=== PATIENT | male | born 1950 | race Caucasian/White ===

== ENCOUNTER → 2021-04-16 | Outpatient (CLI) | payer MEDICARE, BC ==
[~2021-04-16] MED LIST: ABAT250V; ASCO500 PO; ASPI81CH PO; B-COMPLEX PLUS1 EACH PO; Balsalazide Di750 MG PO; CALCA500CH PO; CALMAGZIN PO; CARV3.125 PO; DOCU100 PO; DYAZIDE 75/50 PO; ERGO400 PO; FLUT1DIS5 INH; FOLI1 PO; Ferrous Sulfat325 M2 PO; LISI5 PO; MELO7.5 PO; Multivitamin1 EAC1 PO; PARO10 PO; POTCHL10ER PO; PROBIOTIC1 EAC1 PO; SPIR25 PO; TAMS.4ER PO; TIOT18 INH; TORSE20 PO; Toprol Xl25 MG PO; Trexall10 MG PO; VITAMIN C500 M1 PO; XARELTO20 MG PO
[2021-04-16 14:05] LABS: Stool Occult Bld Immuno 1 Negative (NEGATIVE)
== END | disposition home or self-care (01) ==
LOC: LAB 10:41 → LAB SHORT 10:41
PROVIDERS: Internal Medicine Gastroenterology
DX: K51.90 Ulcerative colitis, unspecified, without complications (principal)
CPT/HCPCS: 82274

== ENCOUNTER 2021-05-13 14:01 | Inpatient (IN) | payer MEDICARE, BC ==
[~2021-05-13] VITALS: Ht 185.4 cm; Wt 69.2 kg
[~2021-05-13 14:01] MED LIST changes: +Acerola C500 MG PO; -VITAMIN C500 M1 PO
[2021-05-13 14:50] LABS: Hematocrit 40.3 % (37.0-53.0); Hemoglobin 13.3 g/dL (13.5-17.5); Mean Corpuscular HGB 33.9 pg (26.0-34.0); Mean Corpuscular Volume 103 fL (80-100); Mean Platelet Volume 11.9 fL (9.1-12.4); Platelet Count 128 K/mm3 (150-400); RDW Coefficient Variation 13.6 % (11.7-14.2); RDW Standard Deviation 51.8 fL (35.1-46.3); Red Blood Cell Count 3.92 M/mm3 (4.30-5.90); White Blood Cell Count 7.29 K/mm3 (4.00-11.30)
[2021-05-13 15:03] LABS: Alanine Aminotransfer (ALT/SGP 31 U/L (12-78); Albumin, Blood 3.3 g/dL (3.4-5.0); Albumin/Globulin Ratio 0.8 (0.8-1.8); Alk Phos 54 U/L (50-136); Anion Gap 4 mmol/L (6-16); Aspartate Aminotrans (AST/SGOT 46 U/L (12-37); Bilirubin, Total 0.5 mg/dL (0.1-1.0); Blood Urea Nitrogen 29 mg/dL (8-24); Bun/Creatinine Ratio 24.2 (12.0-20.0); CO2, Blood 34 mmol/L (21-32); Calcium, Blood 8.4 mg/dL (8.5-10.1); Chloride, Blood 99 mmol/L (98-108); Globulin, Blood 3.9 g/dL (2.2-4.0); Glomerular Filtration Rate >60 (60-); Glucose, Blood 102 mg/dL (70-99); Potassium, Blood 3.8 mmol/L (3.5-5.5); Sodium, Blood 137 mmol/L (136-145); Total Protein, Blood 7.2 g/dL (6.4-8.2); Troponin I <0.015 ng/mL (0.000-0.040)
[2021-05-13] MEDS ORDERED: AMIODARONE HCL100 M3 PO (16:00)
[2021-05-13] MEDS ORDERED: CENTRUM SILVER1 EAC2 PO (16:02)
[2021-05-13] MEDS ORDERED: MELATONIN5 M1 PO (16:02)
[2021-05-13] MEDS ORDERED: MOXIFLOXACIN H400 M1 PO (16:04)
[2021-05-13 20:58] LABS: PCO2 Arterial 68.3 mmHg (35-45); PO2 Arterial 80.1 mmHg (80-100); pH Blood Arterial 7.32 (7.35-7.45)
[2021-05-14 03:56] LABS: BASOPHILS ABSOLUTE AUTO 0.01 K/mm3 (0.00-0.23); BASOPHILS PERCENT AUTO 0 % (0-2); EOSINOPHILS PERCENT AUTO 0 % (0-6); Hematocrit 39.8 % (37.0-53.0); Hemoglobin 12.5 g/dL (13.5-17.5); IMMATURE GRAN ABSOLUTE AUTO 0.02 K/mm3 (0.00-0.10); IMMATURE GRAN PERCENT AUTO 0 % (0-1); LYMPHOCYTES ABSOLUTE AUTO 0.15 K/mm3 (0.84-5.20); LYMPHOCYTES PERCENT AUTO 2 % (21-46); MONOCYTES ABSOLUTE AUTO 0.18 K/mm3 (0.16-1.47); MONOCYTES PERCENT AUTO 3 % (4-13); Mean Corpuscular HGB 33.4 pg (26.0-34.0); Mean Corpuscular HGB Conc 31.4 g/dL (31.5-36.5); Mean Corpuscular Volume 106 fL (80-100); Mean Platelet Volume 12.3 fL (9.1-12.4); NEUTROPHILS PERCENT AUTO 95 % (41-73); Platelet Count 135 K/mm3 (150-400); RDW Coefficient Variation 13.4 % (11.7-14.2); RDW Standard Deviation 53.3 fL (35.1-46.3); Red Blood Cell Count 3.74 M/mm3 (4.30-5.90); White Blood Cell Count 6.56 K/mm3 (4.00-11.30)
[2021-05-14 04:19] LABS: Alanine Aminotransfer (ALT/SGP 30 U/L (12-78); Albumin, Blood 3.1 g/dL (3.4-5.0); Albumin/Globulin Ratio 0.8 (0.8-1.8); Alk Phos 51 U/L (50-136); Anion Gap 5 mmol/L (6-16); Aspartate Aminotrans (AST/SGOT 38 U/L (12-37); Bilirubin, Total 0.4 mg/dL (0.1-1.0); Blood Urea Nitrogen 30 mg/dL (8-24); Bun/Creatinine Ratio 25.4 (12.0-20.0); CO2, Blood 35 mmol/L (21-32); Calcium, Blood 8.6 mg/dL (8.5-10.1); Chloride, Blood 99 mmol/L (98-108); Creatinine, Blood 1.18 mg/dL (0.60-1.20); Globulin, Blood 3.7 g/dL (2.2-4.0); Glomerular Filtration Rate >60 (60-); Glucose, Blood 157 mg/dL (70-99); Potassium, Blood 4.8 mmol/L (3.5-5.5); Sodium, Blood 139 mmol/L (136-145); Total Protein, Blood 6.8 g/dL (6.4-8.2)
--- NOTE | 2021-05-14 07:47 | NUR ---
SHIFT SUMMARY PT AOX4 ON ARRIVAL FROM ER. ARRIVED ON BIPAP, SR 70'S. DENIED CP. BREDEANTING LABORED OFF OF BIPAP. PT PREFERS TO TRIPOD WHEN FEELING DISTRESSED. HAD SEVERAL EPISODES OF PULLING OFF BIPAP AND C/O BEING UNABLE TO BREATHE. THIS RN CALLED DR KOENIG AND OBTAINED ORDERS FOR MAG SULFATE FOR RESPIRATORY DISTRESS, ATIVAN PRN, AND CT PE STUDY. PT COOPERATIVE AND DIRECTABLE WHEN STAFF AT BEDSIDE TO REPOSITION HIM, AID W/USE OF URINAL, AND REPLACING BIPAP. PT TOLERATED SOME ORAL CARE THIS AM, DESATS QUICKLY OFF OF BIPAP INTO 80'S. LR INFUSING PER ORDERS. PT C/O THIS AM OF FREQUENCY W/NO OUTPUT WHEN ASSISTED W/URINAL BY PRIMARY CARE MD THIS AM.
--- NOTE | 2021-05-14 18:30 | NUR ---
SHIFT SUMMARY NO ACUTE EVENTS THIS SHIFT, VSS. PT ALERT AND ORIENTED, CALLS APPROPRIATELY. PT SWITCHED FROM BIPAP OVER TO HIGH FLOW NASAL CANNULA AT START OF SHIFT AT 10 L. ABLE TO TITRATE O2 DOWN TO 8 L VIA HIGH FLOW NASAL CANNULA, O2 SATURATION MAINTAINING >90%. PT IS ALERT AND ORIENTED, INDEPENDENT IN ROOM. DENIES PAIN/DIZZINESS THIS SHIFT. PT STATES HE HAS POOR APPETITE, BUT HAS INTAKE NOTED WITH EVERY MEAL.
--- NOTE | 2021-05-15 06:34 | NUR ---
SHIFT SUMMARY PT IS A&O X4, ON HIGH-MICHAEL NC @ 8 L THIS AM, HE HAS BEEN ON 9L THROUGH THE NIGHT. PT HAS BEEN COOPERATIVE WITH CARE EXCEPT FOR THE USE OF BIPAP. HE STATED IT MADE HIM VERY ANXIOUS & HE PREFERRED OT TO USE IT. PT WAS ENC TO PRONE WHILE WEARING NC, HE WAS COMPLIANT & TOLERANT, SPO2 REMAINS >94% WHILE PRONE. SPO2 WILL DECREASE WITH ACTIVITY. PT ENC TO DB&C. CALL LIGHT IN REACH, NO OTHER ACUTE CHANGES.
--- NOTE | 2021-05-15 09:36 | NUR ---
NO ACUTE EVENTS SINCE START OF SHIFT, PT ALERT AND ORIENTED AND INDEPENDENT IN ROOM. CALLS APPROPRIATELY. REPORT GIVEN TO JOSE F WALDROP ON MEDICAL.
--- NOTE | 2021-05-15 16:25 | NUR ---
SHIFT SUMMARY PCU TRANSFER THIS MORNING. PATIENT DENIES PAIN, NAUSEA, AND SHORTNESS OF BREATH. TITRATED FROM 8L TO 6L HIGH FLOW AND MAINTAINING O2 SATURATIONS ABOVE 92%. PATIENT IS INDEPENDENT IN ROOM. PLEASANT AND COOPERATIVE WITH CARE. EATING AND DRINKING WELL.
--- NOTE | 2021-05-16 03:49 | NUR ---
SHIFT SUMMARY PT HAS RESTED MOST OF THE NIGHT, HE HAS DENIED NEEDS T/O THE SHIFT. INDEPENDENT IN THE ROOM AND MAKES NEEDS KNOWN. RESPIRATORY STATUS UNCHANGED, HE IS ON 6L O2, LUNGS DIM T/O. SOB WITH EXERTION. SATS IN THE 90'S ON 6L. ASSESSMENT UNCHANGED. BED IN LOWEST POSITION, CALL LIGHT WITHIN REACH.
[2021-05-16] MEDS ORDERED: FLUT1DIS5 INH (04:14)
[2021-05-16] MEDS ORDERED: AMOX-CLAV 875-1 EAC5 PO (04:16)
[2021-05-16] MEDS ORDERED: MOXI400 PO (04:17)
--- NOTE | 2021-05-16 18:19 | NUR ---
SHIFT SUMMARY PATIENT DENIES PAIN AND NAUSEA. SHORTNESS OF BREATH WITH EXERTION. HI-FLOW OXUGEN INCREASED FROM 6 TO 15L/NC DURING FIRST HALF OF SHIFT. PATIENT VERY DYSPNEIC AND UNABLE TO MAINTAIN SATURATION ABOVE 75% ON 15L/NC HIFLOW. PATIENT PLACED ON NON-REBREATHER AT 15L IN ADDITION TO HIFLOW 15L/NC. PATIENT ABLE TO RECOVER AND OXYGEN SATURATION RETURNED TO ABOVE 92%. PATIENT PLACED ON BIPAP BUT UNABLE TO TOLERATE MASK MORE THAN 30 MINUTES BEFORE REMOVING. PATIENT PLACED ON AIRVO WHICH PATIENT IS TOLERATING WELL. POOR PO INTAKE, MAGIC CUP AND ENSURE ENCOURAGED. UP INDEPENDENT FROM BED TO CHAIR, URINAL AT BEDSIDE. PLEASANT AND COOPERATIVE WITH CARE.
--- NOTE | 2021-05-17 07:14 | NUR ---
SHIFT SUMMARY ALERT, ABLE TO MAKE NEEDS KNOWN. COOPERATIVE WITH CARE. ANSWERS QUESTIONS APPROPRIATELY. NO C/O PAIN/DISCOMFORT. REMAINED ON AIRVO VIA V60 BIPAP T/O NIGHT. SPO2 SATURATIONS >90% ON 40L. GETS UP TO TRIPODING POSITION PERIODICALLY. APPEARED TO REST SOME OF THE NIGHT. INDEPENDENT WITH URINAL @ BEDSIDE. NO ACUTE CHANGES NOTED OVERNIGHT. BED REMAINS IN LOWEST POSITION. CALL LIGHT AND BELONGINGS WITHIN REACH. CONTINUE WITH CURRENT PLAN OF CARE. REPORT GIVEN TO ONCOMING RN.
--- NOTE | 2021-05-17 17:32 | NUR ---
PT AOX4 AND COOPERATIVE OF CARE. PT CAN CALL APPROPRIATELY AND HAS BEEN PLEASANT. PT IS ON V60 AND HAS BEEN IN MID 90s ON 4L. PT CONTINUES TO FEEL BETTER IN THE TRIPOD POSITION. PT HAS STAYED IN BED SITTING UP AT THE SIDE TODAY. CALL LIGHT IS WITHIN REACH WILL CONTINUE TO MONITOR.
--- NOTE | 2021-05-18 04:05 | NUR ---
SHIFT SUMMARY A/O, ABLE TO MAKE NEEDS KNOWN. COOPERATIVE WITH CARE. CALLS AND ANSWERS QUESTIONS APPROPRIATELY. NO C/O PAIN/DISCOMFORT. APPEARED TO REST MUCH OF THE NIGHT. OXYGENATION AND LUNG SOUNDS APPEAR TO BE IMPROVING. REMAINS ON AIRVO VIA V60 BIPAP. SPO2 >92%. PATIENT STATES STARTING TO FEEL THE IMPROVEMENT. NO OTHER ACUTE CHANGES NOTED OVERNIGHT. BED REMAINS IN LOWEST POSITION. CALL LIGHT AND BELONGINGS WITHIN REACH. CONTINUE WITH CURRENT PLAN OF CARE. REPORT TO ONCOMING RN.
[2021-05-18 13:05] LABS: Hematocrit 44.5 % (37.0-53.0); Hemoglobin 14.1 g/dL (13.5-17.5); Mean Corpuscular HGB 33.3 pg (26.0-34.0); Mean Corpuscular HGB Conc 31.7 g/dL (31.5-36.5); Mean Corpuscular Volume 105 fL (80-100); Mean Platelet Volume 11.6 fL (9.1-12.4); Platelet Count 260 K/mm3 (150-400); RDW Coefficient Variation 13.4 % (11.7-14.2); RDW Standard Deviation 52.6 fL (35.1-46.3); Red Blood Cell Count 4.24 M/mm3 (4.30-5.90); White Blood Cell Count 18.25 K/mm3 (4.00-11.30)
[2021-05-18 13:35] LABS: Anion Gap 1 mmol/L (6-16); Blood Urea Nitrogen 23 mg/dL (8-24); Bun/Creatinine Ratio 29.8 (12.0-20.0); CO2, Blood 39 mmol/L (21-32); Calcium, Blood 9.2 mg/dL (8.5-10.1); Chloride, Blood 102 mmol/L (98-108); Creatinine, Blood 0.77 mg/dL (0.60-1.20); Glomerular Filtration Rate >60 (60-); Glucose, Blood 163 mg/dL (70-99); Potassium, Blood 4.5 mmol/L (3.5-5.5); Sodium, Blood 142 mmol/L (136-145)
--- NOTE | 2021-05-18 17:27 | NUR ---
MET WITH PT TODAY FOR A VISIT. HE IS USING AN 02 OXYMIZER, AND BREATHING APPEARS TO BE IMPROVING FROM YESTERDAY. HE IS STILL WORKING A BIT HARDER THAN NORMAL. HE DENIES PAIN, DENIES SOB, DENIES ANXIETY, BUT APPEARS ANXIOUS WELL. HE IS MAINLY FOCUSED ON HIS BREATHING. HE REQUESTS A CUP OF COFFEE. HE WAS NOT VERY TALKATIVE TODAY EITHER, BUT HE ASKS IF I WOULD BE WILLING TO VISIT AGAIN TOMORROW HE IS "TIRED TODAY". I TELL HIM I WILL.
--- NOTE | 2021-05-18 17:38 | NUR ---
SHIFT SUMMARY PT HAS BEEN INDEPENDENT IN THE ROOM THROUGHOUT THE DAY. PT'S VS STABLE, PT IS ON 3L OXYMIZER AND WAS WEANED OFF THE AIRVO TODAY. PT HAS MAINTAINED SATURATION ABOVE 92% ON THE 3L. PT HAS DENIED PAIN AND DISCOMFORT THROUGHOUT THE DAY. A SPUTUM SAMPLE WAS SENT FOR PT TODAY. PT HAS BEEN DANGLING AT TRIPODING AT THE BEDSIDE THROUHGOUT THE DAY. PT IS RESTING AT THE EDGE OF THE BED WAITING FOR DINNER
--- NOTE | 2021-05-19 04:57 | NUR ---
SHIFT SUMMARY A/O, ABLE TO MAKE NEEDS KNOWN. COOPERATIVE WITH CARE. CALLS AND ANSWERS QUESTIONS APPROPRIATELY. NO C/O PAIN/DISCOMFORT. STATED AROUND 2300 THAT HE WAS FEELING SOB. CONTACTED RT FOR DUONEB; RECIEVED AROUND 0000. IN MEANTIME, INCREASE O2 FROM 3 TO 5 L VIA OXYMIZER WHILE PATIENT WAS TRIPODING. STATED WAS NOT DOING ANY ACTIVITY, ONLY LAYING IN BED. AFTER RECIEVING DUONEB. FELL ASLEEP FOR A WHILE. HAS REMAINED >92% ON O2 T/O SHIFT. BED REMAINED IN LOWEST POSITION. CALL LIGHT AND BELONGINGS WITHIN REACH. CONTINUE WITH CURRENT PLAN OF CARE. REPORT TO ONCOMING RN.
--- NOTE | 2021-05-19 16:59 | NUR ---
SHIFT SUMMARY PATIENT ALERT, ORIENTED, AND COOPERATIVE WITH CARE THIS SHIFT. PATIENT HAS BEEN INDEPENDENT IN THE ROOM THROUGHOUT THIS SHIFT. PATIENT TITRATED DOWN TO 3L O2 FROM 5L AT THE START OF THE SHIFT. O2 SAT CURRENTLY 95. PATIENT ALTERNATING SITTING UP AT THE SIDE OF THE BED AND LYING IN BED. PATIENT CURRENTLY SITTING AT THE SIDE OF THE BED, NO NEEDS AT THIS TIME.
--- NOTE | 2021-05-20 03:53 | NUR ---
SHIFT SUMMARY PT ON 3L O2 T/O THE NIGHT AND MAINTAINS SATS ABOVE 92%. PT STILL VERY SOB WITH EXERTION. PT ANXIOUS AT TIMES. LUNGS DIMINISHED T/O. IV SOLUMEDROL PER ORDERS. NO ACUTE CHANGES TO REPORT THIS SHIFT. PT REMAINS INDEPENDENT IN THE ROOM. BED IN LOWEST POSITION, CALL LIGHT WITHIN REACH.
--- NOTE | 2021-05-20 17:21 | NUR ---
SHIFT SUMMARY PATIENT ALERT AND ORIENTED THROUGHOUT THIS SHIFT. PATIENT HAS BEEN INDEPENDENT IN THE ROOM. PATIENT SITTING ON THE SIDE OF THE BED IN TRIPOD POSITION FOR MOST OF THIS SHIFT. PATIENT STATES IT IS COMMON FOR HIM TO SIT IN THIS POSITION AT HOME. PATIENT REPORTS FEELING SOB, O2 SATS 92-96 THROUGHOUT THIS SHIFT. PATIENT REMAINS ON 3L O2 THIS SHIFT.
--- NOTE | 2021-05-21 04:15 | NUR ---
SHIFT SUMMARY NO ACUTE CHANGES TO REPORT THIS SHIFT. PT HAS RESTED DURING THE SHIFT, O2 NEEDS REMAIN UNCHANGED. PT STILL ON 3L OVERNIGHT. LUNGS ARE DIMINISHED, PT BECOMES SEVERELY SOB WITH EXERTION, AND TAKES SOME TIME FOR HIM TO RECOVER. SATS STAY ABOVE 92% OVERNIGHT SOLUMEDROL CONTINUED ORDERED. PLANS FOR POSSIBLE DC TODAY. BED IN LOWEST POSITION, CALL LIGHT WITHIN REACH.
[2021-05-21 05:23] LABS: BASOPHILS ABSOLUTE AUTO 0.01 K/mm3 (0.00-0.23); BASOPHILS PERCENT AUTO 0 % (0-2); EOSINOPHILS PERCENT AUTO 0 % (0-6); Hemoglobin 13.5 g/dL (13.5-17.5); IMMATURE GRAN ABSOLUTE AUTO 0.09 K/mm3 (0.00-0.10); IMMATURE GRAN PERCENT AUTO 1 % (0-1); LYMPHOCYTES ABSOLUTE AUTO 0.15 K/mm3 (0.84-5.20); LYMPHOCYTES PERCENT AUTO 1 % (21-46); MONOCYTES PERCENT AUTO 4 % (4-13); Mean Corpuscular HGB 33.8 pg (26.0-34.0); Mean Corpuscular HGB Conc 31.4 g/dL (31.5-36.5); Mean Corpuscular Volume 108 fL (80-100); Mean Platelet Volume 11.7 fL (9.1-12.4); NEUTROPHILS ABSOLUTE AUTO 12.68 K/mm3 (1.96-9.15); NEUTROPHILS PERCENT AUTO 94 % (41-73); Platelet Count 186 K/mm3 (150-400); RDW Coefficient Variation 13.5 % (11.7-14.2); RDW Standard Deviation 54.3 fL (35.1-46.3); White Blood Cell Count 13.43 K/mm3 (4.00-11.30)
[2021-05-21 05:43] LABS: Anion Gap -1 mmol/L (6-16); Blood Urea Nitrogen 25 mg/dL (8-24); CO2, Blood 42 mmol/L (21-32); Calcium, Blood 8.6 mg/dL (8.5-10.1); Chloride, Blood 101 mmol/L (98-108); Creatinine, Blood 0.83 mg/dL (0.60-1.20); Glomerular Filtration Rate >60 (60-); Glucose, Blood 135 mg/dL (70-99); Potassium, Blood 4.8 mmol/L (3.5-5.5); Sodium, Blood 142 mmol/L (136-145)
--- NOTE | 2021-05-21 17:45 | NUR ---
PATIENT IS ALERT AND ORIENTED. HE HAS A FLAT AFFECT. HE SITS UP ON THE SIDE OF THE BED TO ASSIST HIS BREATHING. HE IS ON 6L OXYMIZER. HE IS INDEPENDENT TO THE BATHROOM, HE DOES DESAT TO 87% AT TIMES WHILE AMBULATING TO THE BATHROOM. PATIENT SPOKE WITH HIS OVER THE PHONE TODAY. DR. HERNANDEZ PLACED AN ORDER FOR CPAP/BIPAP AT BEDTIME FOR THIS PATIENT. NO C/O PAIN. WILL CONTINUE TO MONITOR
--- NOTE | 2021-05-22 04:05 | NUR ---
SHIFT SUMMARY ADMITTED FOR COVID+/COPD EXACERBATION. DNR CODE. PLAN IS FOR DC HOME W/ WHEN STABLE. HE MAY NEED A TRILOGY. HE DID REFUSE TO WEAR A CPAP HERE. HE IS ON XARELTO. HE DESATS W/ACTIVITY, SO I TEMPORARILY TURNED UP HIS O2. I WAS ABLE TO TITRATE BACK DOWN TO 6 LPM
[2021-05-22 05:10] LABS: PCO2 Arterial 67.7 mmHg (35-45); PO2 Arterial 77.5 mmHg (80-100); pH Blood Arterial 7.42 (7.35-7.45)
[2021-05-22 05:39] LABS: BASOPHILS ABSOLUTE AUTO 0.01 K/mm3 (0.00-0.23); BASOPHILS PERCENT AUTO 0 % (0-2); EOSINOPHILS PERCENT AUTO 0 % (0-6); Hematocrit 42.6 % (37.0-53.0); Hemoglobin 13.5 g/dL (13.5-17.5); IMMATURE GRAN ABSOLUTE AUTO 0.12 K/mm3 (0.00-0.10); IMMATURE GRAN PERCENT AUTO 1 % (0-1); LYMPHOCYTES ABSOLUTE AUTO 0.12 K/mm3 (0.84-5.20); LYMPHOCYTES PERCENT AUTO 1 % (21-46); MONOCYTES PERCENT AUTO 4 % (4-13); Mean Corpuscular HGB 33.3 pg (26.0-34.0); Mean Corpuscular HGB Conc 31.7 g/dL (31.5-36.5); Mean Corpuscular Volume 105 fL (80-100); Mean Platelet Volume 11.7 fL (9.1-12.4); NEUTROPHILS ABSOLUTE AUTO 13.37 K/mm3 (1.96-9.15); NEUTROPHILS PERCENT AUTO 95 % (41-73); Platelet Count 193 K/mm3 (150-400); RDW Coefficient Variation 13.6 % (11.7-14.2); RDW Standard Deviation 53.2 fL (35.1-46.3); Red Blood Cell Count 4.05 M/mm3 (4.30-5.90); White Blood Cell Count 14.12 K/mm3 (4.00-11.30)
[2021-05-22 05:56] LABS: Anion Gap 2 mmol/L (6-16); Blood Urea Nitrogen 24 mg/dL (8-24); Bun/Creatinine Ratio 33.9 (12.0-20.0); CO2, Blood 38 mmol/L (21-32); Chloride, Blood 101 mmol/L (98-108); Creatinine, Blood 0.71 mg/dL (0.60-1.20); Glomerular Filtration Rate >60 (60-); Glucose, Blood 131 mg/dL (70-99); Potassium, Blood 4.5 mmol/L (3.5-5.5); Sodium, Blood 141 mmol/L (136-145)
--- NOTE | 2021-05-22 17:08 | NUR ---
PATIENT IS ALERT AND ORIENTED. HE IS ON 6L OXIMYZER WITH O2 SATURATION AT 93% AT THIS TIME. PATIENT IS INDEPENDENT IN HIS ROOM. PLAN IS FOR DC HOME WITH HOME HEALTH TOMORROW. HIS DROPPED OF CLOTHES FOR HIM THIS EVENING. WILL CONTINUE TO MONITOR
--- NOTE | 2021-05-23 04:50 | NUR ---
SHIFT SUMMARY NO ACUTE CHANGES THIS SHIFT, NO C/O ANY KIND, REMAINS ON 5L 02 VIA OXYMIZER- CURRENT SATS =96%, A&O, INDEP IN ROOM, PLEASANT & COOPERATIVE W/CARE, SLEPT T/O THE NIGHT & SLEEPING AT THIS TIME, CALL LIGHT IN REACH, WILL CONT TO MONITOR UNTIL REPORT GIVEN TO DAY RN.
[2021-05-23] MEDS ORDERED: ALBU2.5V5 INH (14:43)
[2021-05-23] MEDS ORDERED: Diflucan100 MG PO (14:43)
[2021-05-23] MEDS ORDERED: VISBIOME 112.51 EACH PO (14:45)
[2021-05-23] MEDS ORDERED: IPRAT-ALBUT 0.5-3 ML INH (14:45)
[2021-05-23] MEDS ORDERED: PRED20 PO (14:46)
== END 2021-05-23 16:13 | disposition home or self-care (01) | DRG 177 ==
LOC: ER 14:01 → ERHOLD 18:15 → PCU 21:30 → MEDS 05-15 10:19
PROVIDERS: Emergency Medicine; Internal Medicine; ADMIT Internal Medicine
PROC: 8E0ZXY6 Isolation (ICD-10-PCS; principal; 2021-05-13)
PROC: 5A09457 Assistance with Respiratory Ventilation, 24-96 Consecutive Hours, Continuous Positive Airway Pressure (ICD-10-PCS; 2021-05-13)
PROC: XW033E5 Introduction of Remdesivir Anti-infective into Peripheral Vein, Percutaneous Approach, New Technology Group 5 (ICD-10-PCS; 2021-05-13)
PROC: 3E03329 Introduction of Other Anti-infective into Peripheral Vein, Percutaneous Approach (ICD-10-PCS; 2021-05-13)
PROC: 5A0945A Assistance with Respiratory Ventilation, 24-96 Consecutive Hours, High Flow/Velocity Cannula (ICD-10-PCS; 2021-05-18)
DX: U07.1 COVID-19 (principal); J12.82 Pneumonia due to coronavirus disease 2019; J96.01 Acute respiratory failure with hypoxia; J96.02 Acute respiratory failure with hypercapnia; Z66 Do not resuscitate; I48.91 Unspecified atrial fibrillation; I10 Essential (primary) hypertension; Z95.2 Presence of prosthetic heart valve; Z79.01 Long term (current) use of anticoagulants; J43.9 Emphysema, unspecified; Z98.890 Other specified postprocedural states; Z79.899 Other long term (current) drug therapy; Z88.8 Allergy status to other drugs, medicaments and biological substances
CPT/HCPCS: 36415; 36600; 71045; 71260; 80048; 80053; 82803; 83880; 84145; 84484; 85025; 85027; 87070; 87106; 87205; 93005; 93010; 94640; 94644; 94660; 94664; 94760; 94761; 94762; 96374; 96375; 99285-25; A9270; J0456; J0696; J2060; J2920; J2930; J3475; J7040; J7050; J7120; J7512; Q9967

== ENCOUNTER 2024-05-26 05:06 | Emergency (ER) | payer MEDICARE, BC ==
[~2024-05-26] VITALS: Ht 182.9 cm; Wt 71.7 kg
[~2024-05-26 05:06] MED LIST changes: +ALBU2.5V5 INH; +AMIODARONE HCL100 M3 PO; +AMOX-CLAV 875-1 EAC5 PO; +CENTRUM SILVER1 EAC2 PO; +Diflucan100 MG PO; +IPRAT-ALBUT 0.5-3 ML INH; +MELATONIN5 M1 PO; +MOXI400 PO; +MOXIFLOXACIN H400 M1 PO; +PRED20 PO; +VISBIOME 112.51 EACH PO
[2024-05-26] MEDS ORDERED: PACERONE100 M1 PO (05:19)
[2024-05-26] MEDS ORDERED: POTA10T PO (05:23)
[2024-05-26] MEDS ORDERED: TAMS.4ER PO (05:24)
[2024-05-26 05:32] LABS: Source, Urine Foley catheter
[2024-05-26 05:35] LABS: Appearance, Urine Clear (Clear); Bilirubin, Urine Neg (Neg); Blood, Urine 2+ (Neg); Color, Urine Yellow (P-Yellow); Glucose Qualitative, Urine Neg (Neg); Ketones, Urine Neg (Neg); Leukocyte Esterase, Urine 1+ (Neg); Nitrite, Urine Neg (Neg); Protein, Urine 1+ (Neg); Urobilinogen, Urine NORM (Normal)
[2024-05-26 05:54] LABS: Bacteria Many /hpf; Red Blood Cells, Urine 0-2 /hpf (0-2); Renal Epithelial Rare /hpf (0-Rare); Squamous Epithelial Cells Rare /hpf (Few)
[2024-05-26 06:47] VITALS: BP 139/88
[2024-05-26] MEDS ORDERED: CEFDINIR300 M1 PO (07:14)
== END 2024-05-26 07:26 | disposition home or self-care (01) ==
LOC: ER 05:06
PROVIDERS: Emergency Medicine
DX: N39.0 Urinary tract infection, site not specified (principal); J44.9 Chronic obstructive pulmonary disease, unspecified; I10 Essential (primary) hypertension; I48.91 Unspecified atrial fibrillation; Z79.899 Other long term (current) drug therapy; Z79.52 Long term (current) use of systemic steroids; Z79.51 Long term (current) use of inhaled steroids; Z88.8 Allergy status to other drugs, medicaments and biological substances
CPT/HCPCS: 51702; 51798; 81001; 87077; 87086; 87186; 99283-25

== ENCOUNTER → 2024-12-20 | Outpatient (CLI) | payer MEDICARE, BC ==
[~2024-12-20] MED LIST changes: +CEFDINIR300 M1 PO; +PACERONE100 M1 PO; +POTA10T PO
[2024-12-20 17:37] LABS: BASOPHILS ABSOLUTE AUTO 0.03 K/mm3 (0.00-0.23); BASOPHILS PERCENT AUTO 1 % (0-2); EOSINOPHILS ABSOLUTE AUTO 0.06 K/mm3 (0.00-0.68); EOSINOPHILS PERCENT AUTO 1 % (0-6); Hematocrit 41.4 % (37.0-53.0); Hemoglobin 12.9 g/dL (13.5-17.5); IMMATURE GRAN ABSOLUTE AUTO 0.01 K/mm3 (0.00-0.10); IMMATURE GRAN PERCENT AUTO 0 % (0-1); LYMPHOCYTES PERCENT AUTO 4 % (21-46); MONOCYTES ABSOLUTE AUTO 0.29 K/mm3 (0.16-1.47); MONOCYTES PERCENT AUTO 5 % (4-13); Mean Corpuscular HGB 32.3 pg (26.0-34.0); Mean Corpuscular HGB Conc 31.2 g/dL (31.5-36.5); Mean Corpuscular Volume 104 fL (80-100); Mean Platelet Volume 12.7 fL (9.1-12.4); NEUTROPHILS ABSOLUTE AUTO 4.79 K/mm3 (1.96-9.15); NEUTROPHILS PERCENT AUTO 89 % (41-73); Platelet Count 104 K/mm3 (150-400); RDW Standard Deviation 54.4 fL (35.1-46.3); Red Blood Cell Count 3.99 M/mm3 (4.30-5.90); White Blood Cell Count 5.38 K/mm3 (4.00-11.30)
[2024-12-20 17:49] LABS: Alanine Aminotransfer (ALT/SGP 25 U/L (12-78); Albumin, Blood 3.6 g/dL (3.4-5.0); Albumin/Globulin Ratio 1.2 (0.8-1.8); Alk Phos 66 U/L (50-136); Anion Gap 9 mmol/L (3-11); Aspartate Aminotrans (AST/SGOT 18 U/L (12-37); Bilirubin, Total 0.4 mg/dL (0.1-1.0); Blood Urea Nitrogen 18 mg/dL (8-24); Bun/Creatinine Ratio 18.3 (12.0-20.0); CHOL/HDL RATIO 1.9; CO2, Blood 36 mmol/L (21-32); Calcium, Blood 9.3 mg/dL (8.5-10.1); Chloride, Blood 100 mmol/L (98-108); Cholesterol 188 mg/dL (50-200); Creatinine, Blood 0.98 mg/dL (0.60-1.20); Globulin, Blood 2.9 g/dL (2.2-4.0); Glomerular Filtration Rate 82 (60-); Glucose, Blood 143 mg/dL (70-99); HDL Cholesterol 98 mg/dL (>39); LDL/HDL RATIO 0.7; Low Density Lipoprotein Chol 68 mg/dL (0-110); Potassium, Blood 4.4 mmol/L (3.5-5.5); Sodium, Blood 141 mmol/L (136-145); Total Protein, Blood 6.5 g/dL (6.4-8.2); Triglycerides 108 mg/dL (30-160); Very Low Density Lipoprot Chol 21 mg/dL (6-32)
[2024-12-21 13:33] LABS: PSA, %Free 8.4 %; PSA, Free 0.668 ng/mL
== END ==
LOC: LAB 16:29 → LAB SHORT 16:29
PROVIDERS: Family Medicine
DX: N42.9 Disorder of prostate, unspecified (principal); I10 Essential (primary) hypertension; R53.83 Other fatigue; D51.9 Vitamin B12 deficiency anemia, unspecified
CPT/HCPCS: 80053; 80061; 82607; 84153; 84154; 85025

== ENCOUNTER → 2025-01-15 | Outpatient (CLI) | payer MEDICARE, BC ==
[2025-01-15 15:03] LABS: BASOPHILS ABSOLUTE AUTO 0.02 K/mm3 (0.00-0.23); BASOPHILS PERCENT AUTO 0 % (0-2); EOSINOPHILS ABSOLUTE AUTO 0.05 K/mm3 (0.00-0.68); EOSINOPHILS PERCENT AUTO 1 % (0-6); Hematocrit 41.3 % (37.0-53.0); Hemoglobin 13.2 g/dL (13.5-17.5); IMMATURE GRAN ABSOLUTE AUTO 0.03 K/mm3 (0.00-0.10); IMMATURE GRAN PERCENT AUTO 1 % (0-1); LYMPHOCYTES ABSOLUTE AUTO 0.21 K/mm3 (0.84-5.20); LYMPHOCYTES PERCENT AUTO 3 % (21-46); MONOCYTES ABSOLUTE AUTO 0.34 K/mm3 (0.16-1.47); MONOCYTES PERCENT AUTO 5 % (4-13); Mean Corpuscular HGB 32.8 pg (26.0-34.0); Mean Corpuscular Volume 103 fL (80-100); NEUTROPHILS ABSOLUTE AUTO 5.61 K/mm3 (1.96-9.15); NEUTROPHILS PERCENT AUTO 90 % (41-73); RDW Coefficient Variation 13.3 % (11.7-14.2); RDW Standard Deviation 50.6 fL (35.1-46.3); Red Blood Cell Count 4.03 M/mm3 (4.30-5.90); White Blood Cell Count 6.26 K/mm3 (4.00-11.30)
[2025-01-15 15:14] LABS: Albumin, Blood 4.3 g/dL (3.4-5.0); Albumin/Globulin Ratio 1.7 (0.8-1.8); Bilirubin, Total 0.5 mg/dL (0.1-1.0); Bun/Creatinine Ratio 17.7 (12.0-20.0); Calcium, Blood 9.3 mg/dL (8.5-10.1); Creatinine, Blood 0.96 mg/dL (0.60-1.20); Globulin, Blood 2.5 g/dL (2.2-4.0); Potassium, Blood 4.6 mmol/L (3.5-5.5); Total Protein, Blood 6.8 g/dL (6.4-8.2)
[2025-01-15 15:16] LABS: Mean Platelet Volume 11.5 fL (9.1-12.4); Platelet Count 102 K/mm3 (150-400)
== END ==
LOC: LAB SHORT 14:59 → LAB 14:59
PROVIDERS: Emergency Medicine
DX: N39.0 Urinary tract infection, site not specified (principal)
CPT/HCPCS: 80053; 85025; 87086

== ENCOUNTER 2025-04-29 08:58 | Emergency (ER) | payer MEDICARE, BC ==
[~2025-04-29] VITALS: Ht 175.3 cm; Wt 65.8 kg
[2025-04-29] MEDS ORDERED: Dexamethasone Sod Phos 10 MG/ML 1ML VIAL IV ONE (09:15)
[2025-04-29] MEDS ORDERED: Albuterol 2.5 MG/3 ML VIAL INH SCH (09:15)
[2025-04-29 09:38] LABS: BASOPHILS ABSOLUTE AUTO 0.02 K/mm3 (0.00-0.23); BASOPHILS PERCENT AUTO 0 % (0-2); EOSINOPHILS ABSOLUTE AUTO 0.00 K/mm3 (0.00-0.68); EOSINOPHILS PERCENT AUTO 0 % (0-6); Hematocrit 31.4 % (37.0-53.0); Hemoglobin 9.4 g/dL (13.5-17.5); IMMATURE GRAN ABSOLUTE AUTO 0.05 K/mm3 (0.00-0.10); IMMATURE GRAN PERCENT AUTO 1 % (0-1); LYMPHOCYTES ABSOLUTE AUTO 0.21 K/mm3 (0.84-5.20); LYMPHOCYTES PERCENT AUTO 2 % (21-46); MONOCYTES ABSOLUTE AUTO 1.09 K/mm3 (0.16-1.47); MONOCYTES PERCENT AUTO 12 % (4-13); Mean Corpuscular HGB Conc 29.9 g/dL (31.5-36.5); Mean Corpuscular Volume 104 fL (80-100); NEUTROPHILS ABSOLUTE AUTO 8.14 K/mm3 (1.96-9.15); NEUTROPHILS PERCENT AUTO 86 % (41-73); NRBC ABSOLUTE 0.00 K/mm3 (0.00-0.02); NRBC Auto 0.0 /100 WBC (0.0-0.2); Platelet Count 138 K/mm3 (150-400); RDW Coefficient Variation 14.4 % (11.7-14.2); RDW Standard Deviation 54.5 fL (35.1-46.3)
[2025-04-29] MEDS ORDERED: Midazolam HCl 1MG / ML 2ML Vial IV ONE (09:40)
[2025-04-29 09:58] LABS: Alanine Aminotransfer (ALT/SGP 51.0 U/L (12-78); Albumin, Blood 2.4 g/dL (3.4-5.0); Albumin/Globulin Ratio 0.6 (0.8-1.8); Anion Gap 5.0 mmol/L (3-11); Aspartate Aminotrans (AST/SGOT 49.0 U/L (12-37); Bilirubin, Total 0.5 mg/dL (0.1-1.0); Blood Urea Nitrogen 12.0 mg/dL (8-24); CO2, Blood 38.0 mmol/L (21-32); Calcium, Blood 8.9 mg/dL (8.5-10.1); Chloride, Blood 96.0 mmol/L (98-108); Creatinine, Blood 0.72 mg/dL (0.60-1.20); Globulin, Blood 4.3 g/dL (2.2-4.0); Glucose, Blood 140.0 mg/dL (70-99); Potassium, Blood 4.7 mmol/L (3.5-5.5); Sodium, Blood 134.0 mmol/L (136-145); Total Protein, Blood 6.7 g/dL (6.4-8.2)
[2025-04-29 10:10] LABS: pH Blood Venous 7.35 (7.34-7.37)
[2025-04-29 10:22] LABS: Source, Urine Clean Catch
[2025-04-29 10:27] LABS: Bilirubin, Urine Neg (Neg); Color, Urine Yellow (P-Yellow); Glucose Qualitative, Urine Neg (Neg); Ketones, Urine Neg (Neg); Leukocyte Esterase, Urine Neg (Neg); Protein, Urine 2+ (Neg); Specific Gravity, Urine 1.015 (1.003-1.022); Urobilinogen, Urine 1+ (Normal)
[2025-04-29 10:40] LABS: Red Blood Cells, Urine 0-2 /hpf (0-2)
[2025-04-29 11:32] VITALS: BP 102/66
== END 2025-04-29 13:38 | disposition home or self-care (01) ==
LOC: ER 08:58
PROVIDERS: Student in an Organized Health Care Education/Training Program
DX: R06.02 Shortness of breath (principal); I10 Essential (primary) hypertension; I48.91 Unspecified atrial fibrillation; Z79.01 Long term (current) use of anticoagulants; Z90.89 Acquired absence of other organs; J44.9 Chronic obstructive pulmonary disease, unspecified
CPT/HCPCS: 71045; 80053; 81001; 82803; 83880; 84484; 85025; 87077; 87086; 87186; 93005; 93010; 94644; 94660; 94664; 96374; 96375; 99285-25; J1100; J2250

== ENCOUNTER → 2025-05-10 | Outpatient (CLI) | payer MEDICARE, BC ==
[2025-05-10 16:42] LABS: Source, Urine Clean Catch
[2025-05-10 17:30] LABS: Bilirubin, Urine Neg (Neg); Color, Urine Yellow (P-Yellow); Glucose Qualitative, Urine Neg (Neg); Ketones, Urine 1+ (Neg); Leukocyte Esterase, Urine Neg (Neg); Protein, Urine 1+ (Neg); Specific Gravity, Urine 1.010 (1.003-1.022); Urobilinogen, Urine NORM (Normal)
[2025-05-10 17:39] LABS: Red Blood Cells, Urine 0-2 /hpf (0-2); White Blood Cells, Urine 0-2 /hpf (0-5)
== END ==
LOC: LAB SHORT 16:40 → LAB 16:40
PROVIDERS: Family Medicine
DX: N39.0 Urinary tract infection, site not specified (principal)
CPT/HCPCS: 81001

== ENCOUNTER → 2025-05-26 | Outpatient (CLI) | payer MEDICARE, BC | END | disposition home or self-care (01) | LOC: LAB 15:20 → LAB SHORT 15:20 | DX: N39.0 Urinary tract infection, site not specified (principal) | CPT/HCPCS: 87077; 87086; 87186 ==

== ENCOUNTER 2025-06-16 16:36 | Inpatient (IN) | payer MEDICARE, BC ==
[~2025-06-16] VITALS: Ht 182.9 cm; Wt 61.2 kg
[2025-06-16 17:02] LABS: pH Blood Venous 7.28 (7.34-7.37)
[2025-06-16 17:13] LABS: BASOPHILS ABSOLUTE AUTO 0.01 K/mm3 (0.00-0.23); BASOPHILS PERCENT AUTO 0 % (0-2); EOSINOPHILS ABSOLUTE AUTO 0.00 K/mm3 (0.00-0.68); EOSINOPHILS PERCENT AUTO 0 % (0-6); Hematocrit 31.4 % (37.0-53.0); Hemoglobin 8.8 g/dL (13.5-17.5); IMMATURE GRAN ABSOLUTE AUTO 0.02 K/mm3 (0.00-0.10); IMMATURE GRAN PERCENT AUTO 0 % (0-1); LYMPHOCYTES ABSOLUTE AUTO 0.11 K/mm3 (0.84-5.20); LYMPHOCYTES PERCENT AUTO 2 % (21-46); MONOCYTES ABSOLUTE AUTO 0.44 K/mm3 (0.16-1.47); MONOCYTES PERCENT AUTO 6 % (4-13); Mean Corpuscular HGB Conc 28.0 g/dL (31.5-36.5); Mean Corpuscular Volume 103 fL (80-100); NEUTROPHILS ABSOLUTE AUTO 6.52 K/mm3 (1.96-9.15); NEUTROPHILS PERCENT AUTO 92 % (41-73); NRBC ABSOLUTE 0.00 K/mm3 (0.00-0.02); NRBC Auto 0.0 /100 WBC (0.0-0.2); Platelet Count 146 K/mm3 (150-400); RDW Coefficient Variation 16.4 % (11.7-14.2); RDW Standard Deviation 62.4 fL (35.1-46.3)
[2025-06-16 17:49] LABS: Alanine Aminotransfer (ALT/SGP 27 U/L (12-78); Albumin, Blood 2.6 g/dL (3.4-5.0); Albumin/Globulin Ratio 0.6 (0.8-1.8); Aspartate Aminotrans (AST/SGOT 24 U/L (12-37); Bilirubin, Total 0.2 mg/dL (0.1-1.0); Blood Urea Nitrogen 12 mg/dL (8-24); Calcium, Blood 8.9 mg/dL (8.5-10.1); Chloride, Blood 95 mmol/L (98-108); Creatinine, Blood 0.47 mg/dL (0.60-1.20); Globulin, Blood 4.1 g/dL (2.2-4.0); Glucose, Blood 176 mg/dL (70-99); Potassium, Blood 4.4 mmol/L (3.5-5.5); Sodium, Blood 135 mmol/L (136-145); Total Protein, Blood 6.7 g/dL (6.4-8.2)
[2025-06-16 17:50] LABS: Anion Gap Unable to Calculate mmol/L (3-11); CO2, Blood >45 mmol/L (21-32)
[2025-06-16] MEDS ORDERED: Albuterol 2.5 MG/3 ML VIAL INH PRN (20:40)
[2025-06-16] MEDS ORDERED: Ondansetron HCl 2 MG / ML 2ML Vial IV PRN (20:45)
[2025-06-16] MEDS ORDERED: NS 1,000 ML IV SCH (20:45)
[2025-06-16] MEDS ORDERED: Metoclopramide HCl 5MG / ML 2ML Vial IV PRN (20:45)
[2025-06-16 20:50] LABS: pH Blood Venous 7.37 (7.34-7.37)
[2025-06-16] MEDS ORDERED: Ipratropium/Albuterol SulF 2.5-0.5MG/3 ML Amp INH SCH (21:00)
[2025-06-16] MEDS ORDERED: CefTRIAXone Sodium 1,000 MG in NS 100 ML IV SCH (21:03)
--- NOTE | 2025-06-16 21:37 | NUR ---
ARRIVAL TO UNIT PT ARRIVED TO UNIT VIA VARGAS FROM ED. PT SLID TO BED. BIPAP IN USE, RT AT BEDSIDE. O2 SATS >95% ON CURRENT BIPAP SETTINGS, RR 20-28. BASELINE PT WEARS 3-4L O2 VIA NC & CPAP USE @ NOC. A&O x4, PT COMMINUCATION LIMITED R/T BIPAP. PT SPEECH SLOW, ABLE TO ANSWER YES/NO QUESTIONS & 1-2 WORD RESPONSES. NPO. A-FIB, PT DENIES CHEST PAIN/PRESSURE, HR 90s, MAP >65. 1+ EDEMA TO BILAT LEs. SKIN TEAR TO L FA & PRESSURE ULCER TO R POSTERIOR HIP. PICTURES IN CHART. PT DENIES PAIN. INCONT, ATTENDS IN USE. BRIEF CHANGED PRIOR TO ARRIVAL TO UNIT VIA ED RN. BEDREST ORDERED, PT STATES BASELINE IND c FWW. PT ABLE TO PARTICIPATE c TURNING IN BED. ORIENTED TO ROOM, CALL LIGHT IN REACH, BED IN LOWEST POSITION.
[2025-06-16 22:00] VITALS: BP 119/75
[2025-06-16 22:30] VITALS: BP 107/92
[2025-06-16 23:00] VITALS: BP 119/74
[2025-06-17] VITALS (17 sets, daily range): BP systolic 94–136; BP diastolic 50–89
[2025-06-17 03:17] LABS: pH Blood Venous 7.42 (7.34-7.37)
[2025-06-17 03:43] LABS: BASOPHILS ABSOLUTE AUTO 0.00 K/mm3 (0.00-0.23); BASOPHILS PERCENT AUTO 0 % (0-2); EOSINOPHILS ABSOLUTE AUTO 0.00 K/mm3 (0.00-0.68); EOSINOPHILS PERCENT AUTO 0 % (0-6); Hematocrit 28.1 % (37.0-53.0); Hemoglobin 7.9 g/dL (13.5-17.5); IMMATURE GRAN ABSOLUTE AUTO 0.01 K/mm3 (0.00-0.10); IMMATURE GRAN PERCENT AUTO 0 % (0-1); LYMPHOCYTES ABSOLUTE AUTO 0.07 K/mm3 (0.84-5.20); LYMPHOCYTES PERCENT AUTO 2 % (21-46); MONOCYTES ABSOLUTE AUTO 0.06 K/mm3 (0.16-1.47); MONOCYTES PERCENT AUTO 2 % (4-13); Mean Corpuscular HGB Conc 28.1 g/dL (31.5-36.5); Mean Corpuscular Volume 102 fL (80-100); NEUTROPHILS ABSOLUTE AUTO 3.20 K/mm3 (1.96-9.15); NEUTROPHILS PERCENT AUTO 96 % (41-73); NRBC ABSOLUTE 0.00 K/mm3 (0.00-0.02); NRBC Auto 0.0 /100 WBC (0.0-0.2); Platelet Count 136 K/mm3 (150-400); RDW Coefficient Variation 16.1 % (11.7-14.2); RDW Standard Deviation 60.3 fL (35.1-46.3)
[2025-06-17 04:01] LABS: Alanine Aminotransfer (ALT/SGP 21.0 U/L (12-78); Albumin, Blood 2.4 g/dL (3.4-5.0); Albumin/Globulin Ratio 0.7 (0.8-1.8); Anion Gap 3.0 mmol/L (3-11); Aspartate Aminotrans (AST/SGOT 17.0 U/L (12-37); Bilirubin, Total 0.3 mg/dL (0.1-1.0); Blood Urea Nitrogen 11.0 mg/dL (8-24); CO2, Blood 42.0 mmol/L (21-32); Calcium, Blood 8.6 mg/dL (8.5-10.1); Chloride, Blood 97.0 mmol/L (98-108); Creatinine, Blood 0.45 mg/dL (0.60-1.20); Globulin, Blood 3.6 g/dL (2.2-4.0); Glucose, Blood 115.0 mg/dL (70-99); Magnesium, Blood 1.9 mg/dL (1.6-2.4); Potassium, Blood 4.4 mmol/L (3.5-5.5); Sodium, Blood 138.0 mmol/L (136-145); Total Protein, Blood 6.0 g/dL (6.4-8.2)
--- NOTE | 2025-06-17 06:24 | NUR ---
SHIFT SUMMARY S/P COPD EXACERBATION. A&O x4, RESPONDS TO QUESTIONS APPROPRIATELY, LIMITED COMUNICATION R/T BIPAP. O2 SAT >92 ON BIPAP: 16/5 @ 35% FiO2, TOLERATING WELL. PT WEARS 3L O2 VIA NC CONTINUALLY AT BASELINE. PT MAINTAINED O2 SAT >92% ON 4L O2 VIA NC WHILE AWAKE FOR APPROX 2 HOURS. HR 80s c PVCs, MAP >65. IV FLUIDS INFUSING PER EMAR. VOIDING, DARK UNRINE, ATTENDS IN USE, INTERMITTENTLY INCONT. SOFT BM THIS SHIFT. MIN PERIORBITAL SWELLING, BILAT ANKLE EDEMA 1+. BANDAID TO L FA c MIN DRIED SANG DRAINAGE. MEPILEX TO R POSTERIOR HIP C/D/I, PICTURES OF WOUNDS IN CHART. BEDREST ORDERED, BASELINE IND AMB c WALKER. CALL LIGHT IN REACH, BED IN LOWEST POSITION, WILL REPORT TO DAY RN.
[2025-06-17] MEDS ORDERED: Polyethylene Glycol 3350 17 gm PO PRN (07:20)
[2025-06-17] MEDS ORDERED: Cholecalciferol 1000 Unit Tablet (=25MCG) PO SCH (09:00)
[2025-06-17] MEDS ORDERED: Enoxaparin 40 MG/0.4 ML SYR SC SCH (09:00)
[2025-06-17] MEDS ORDERED: Lactobacil 2-S.Thermo-Bifido 1 1 Cap PO SCH (09:00)
[2025-06-17] MEDS ORDERED: PRED5 PO (09:02)
[2025-06-17] MEDS ORDERED: TORS10 PO (09:07)
--- NOTE | 2025-06-17 13:07 | NUR ---
REASSESSMENT PT IS DOING WELL W SPO2 >90% ON 3L NC. PT TOLERATING PO INTAKE DENYING ANY PAIN OR NAUSEA. LS DIMINISHED T/O. PT W ONE INCONTINENT VOID OF BOTH STOOL AND URINE. PT'S MONITOR SHOWING SR 90'S. PT'S TO BRING IN HIS HOME BIPAP TODAY. MED REC COMPLETED W PT AND HIS . PT CURRENTLY RESTING IN BED COMFORTABLY DENYING ANY NEEDS AT THIS TIME.
[2025-06-17] MEDS ORDERED: Morphine Sulfate 4 MG/1 ML Injection IV PRN (17:20)
--- NOTE | 2025-06-17 18:46 | NUR ---
DAY SHIFT SUMMARY PT HAS BEEN ALERT AND ORIENTED THIS SHIFT BUT HAS HAD SEVERAL EPISODES OF CONFUSION REQUIRING REORIENTATION ABOUT THE TIMELINE OF HIS HOSPITALIZATION. PT HAS MAINTAINED SPO2 >90% ON 3-6L NC THIS SHIFT. PT'S SPOUSE BROUGHT IN PT'S HOME BIPAP WHICH DR. MA ADJUSTED FOR THE PT AND THE PT HAS TOLERATED THAT WELL. PT'S BP WNL AND STABLE THIS SHIFT. PT WAS SR 90'S THIS AM BUT HAS BEEN IN AND OUT OF AFIB 90'S-100'S T/O THE DAY. PT AFEBRILE THIS SHIFT. PT TOLERATING PO INTAKE THIS SHIFT. PT INCONTINENT OF BOT STOOL AND URINE THIS SHIFT. WILL REPORT TO ONCOMING RN.
[2025-06-17 19:53] LABS: Influenza A/2009-H1 Not Detected (NOT DETECT); SARS-Cov-2 (COVID-19), BioFire Not Detected (NOT DETECT)
--- NOTE | 2025-06-17 20:55 | NUR ---
PT ARRIVES TO FLOOR VIA BED FROM ICU8. PT ARRIVES ON 3L O2 VIA NC WITH PERSONAL BIPAP AT BEDSIDE. PT ORIENTED TO ROOM AND GIVEN CALL LIGHT.
[2025-06-17] MEDS ORDERED: Docusate Sodium/Senna 1 Tab PO SCH (21:00)
--- NOTE | 2025-06-17 21:08 | NUR ---
PATIENT TRANSFERRED TO ROOM 214. PATIENT MADE AWARE OF POSSIBILITY OF PATIENT TRANFER. PER PATIENT . OK NOT TO NOTIFY OF PATIENT TRANSFER TONIGHT "BECAUSE I NEED TO GET SOME SLEEP, I WILL CHECK WITH FACILITY IN THE MORNING TO FIND OUT WHERE HE HAS MOVED". PATIENT TRANSFERRED VIA BED ON 3L NC. HOME BIPAP TRANSPORTED WITH PATIENT WELL ALL OF PATIENT BELONGINGS IN ROOM. MALE EXTERNAL CATHETER DRAINING TO GRAVITY. SAFTY INTACT.
[2025-06-17] MEDS ORDERED: Ipratropium/Albuterol SulF 2.5-0.5MG/3 ML Amp INH SCH (21:31)
--- NOTE | 2025-06-18 01:53 | NUR ---
CALL FROM SCHOOL BUS DISPATCHER; PT WITH INTERMITTENT ST ELEVATION PER MONITOR. PT REPORTS NO CHEST PAIN OR PRESSURE HOWEVER REPORTS THAT HE FEELS SOME HEART PALPITATIONS. EKG OBTAINED AND AWAITING CALL BACK FROM PROVIDER.
[2025-06-18 01:55] VITALS: BP 103/70
[2025-06-18 04:50] VITALS: BP 114/65
[2025-06-18 04:56] LABS: pH Blood Venous 7.44 (7.34-7.37)
[2025-06-18 05:00] LABS: Hematocrit 30.8 % (37.0-53.0); Hemoglobin 8.7 g/dL (13.5-17.5); Mean Corpuscular HGB Conc 28.2 g/dL (31.5-36.5); Mean Corpuscular Volume 101 fL (80-100); NRBC ABSOLUTE 0.00 K/mm3 (0.00-0.02); NRBC Auto 0.0 /100 WBC (0.0-0.2); Platelet Count 164 K/mm3 (150-400); RDW Coefficient Variation 16.4 % (11.7-14.2); RDW Standard Deviation 60.6 fL (35.1-46.3)
--- NOTE | 2025-06-18 05:34 | NUR ---
PT WITH EPISODE OF INTERMITTENT ST ELEVATION (SEE PREVIOUS NOTE). AT 0535 DRILL PRESS OPERATOR FOR METAL REPORTS NO ST ELEVATION AT THIS TIME. PT WITH HOME BIPAP IN USE DURING SHIFT. PT HAD CONDOM CATHETER MALFUCTION AT APPROXIMATELY 0200 WITH NEED TO CHANGE TO MALE PUREWICK AND BED CHANGE COMPLETED. PT ON 3L O2 VIA NC (PT BASELINE); CONTINUOUS BIOX IN PLACE.
[2025-06-18 05:56] LABS: Ferritin, Serum 429 ng/mL (26-388); Magnesium, Blood 1.8 mg/dL (1.6-2.4); Total Iron Binding Capacity 211 ug/dL (250-450)
[2025-06-18 06:02] LABS: Albumin, Blood 2.7 g/dL (3.4-5.0); Blood Urea Nitrogen 19 mg/dL (8-24); Calcium, Blood 8.7 mg/dL (8.5-10.1); Chloride, Blood 94 mmol/L (98-108); Creatinine, Blood 0.60 mg/dL (0.60-1.20); Glucose, Blood 133 mg/dL (70-99); Phosphorus, Blood 3.2 mg/dL (2.5-4.9); Potassium, Blood 4.0 mmol/L (3.5-5.5); Sodium, Blood 138 mmol/L (136-145)
[2025-06-18 06:04] LABS: Anion Gap Unable to Calculate mmol/L (3-11)
[2025-06-18 06:06] LABS: CO2, Blood >45 mmol/L (21-32)
[2025-06-18 08:02] VITALS: BP 107/91
[2025-06-18 14:59] VITALS: BP 113/89
[2025-06-18] MEDS ORDERED: NS 1,000 ML IV SCH (16:00)
--- NOTE | 2025-06-18 17:50 | NUR ---
PT RESTING. USING BIPAP INTERMITTENTLY WHILE NAPPING. ALTERNATES BETWEEN BIPAP AND NC. DENIES COMPLAINTS. WILL CONTINUE TO MONITOR.
[2025-06-18 21:03] VITALS: BP 106/63
--- NOTE | 2025-06-18 21:07 | NUR ---
RN TO ROOM TO MEDICATE; PT REPORTS PUREWICK IS "LEAKING A LITTLE" UPON INVESTIGATION, PT PUREWICK OUT OF PLACE. PT PARTIAL LINEN CHANGE COMPLETED AND TAB CARE COMPLETED. NEW PUREWICK PLACED AND IS DRAINING TO SUCTION.
[2025-06-19] VITALS (7 sets, daily range): BP systolic 102–147; BP diastolic 67–78
[2025-06-19] MEDS ORDERED: Vancomycin (Pharmacy Consult) IV SCH (01:00)
[2025-06-19] MEDS ORDERED: NS 250 ML IV PRN (03:55)
--- NOTE | 2025-06-19 05:36 | NUR ---
SHIFT SUMMARY PT TRANSFERED FROM [facility] AROUND 0325. PT ARRIVED ON 3L OF OXYGEN, WHICH IS HIS BASELINE. ORIENTED TO ROOM. RT AT BEDSIDE TO SET UP HOME BIPAP TO USE DURING SLEEP. PT REPOSITIONED. TYLENOL GIVEN FOR PAIN IN BACK, PER EMAR. VSS. BED IN LOWEST POSITION AND CALL LIGHT IN REACH.
--- NOTE | 2025-06-19 09:55 | NUR ---
IN ROOM. STATES AMIODORONE TO BE [address] SOLER. SPOKE TO DR ALSTON. OKAY TO CHANGE TO 100 MG PO DAILY START NOW.
[2025-06-19 11:24] LABS: Source, Urine Clean Catch
[2025-06-19 11:59] LABS: Bilirubin, Urine Neg (Neg); Glucose Qualitative, Urine Neg (Neg); Ketones, Urine Neg (Neg); Leukocyte Esterase, Urine Neg (Neg); Protein, Urine Neg (Neg); Specific Gravity, Urine 1.010 (1.003-1.022); Urobilinogen, Urine NORM (Normal)
[2025-06-19 12:19] LABS: Color, Urine Pale Yellow (P-Yellow)
--- NOTE | 2025-06-19 18:12 | NUR ---
PT PRESENTS CALM TODAY. DID HAVE CONCERNS WITH HOME CPAP MASK AND REQUESTED DR RULA MARRERO WHEN HE IN ROOM. PT RESTING QUIETLY WNEN ALONE. LUNGS DIM TIGHT T/O. MINIMAL AIR MOVEMENT NOTED. CONTINUES ON 3L O2. ON HOME CPAP WHEN SLEEPING. PRESENTLY EATING DINNER. NO NEW COMPLAINTS NOTED. BED IN LOW POSITION, CALL LITE IN REACH, CALLS APPROP
--- NOTE | 2025-06-20 03:03 | NUR ---
CALL TO DR. HUYNH DUE TO PT PULSE DROPPING INTO HIGH 30'S-LOW 40'S WHILE SLEEPING AND ON BIPAP. PER DR. HUYNH CONTINUE TO MONITOR. ASKED PT IF THIS WAS NORMAL FOR HIM AND HE STATES IT IS. PT DENIES ANY S/S.
[2025-06-20 04:43] VITALS: BP 106/66
--- NOTE | 2025-06-20 05:33 | NUR ---
SHIFT SUMMARY A&OX4. ABLE TO MAKE NEEDS KNOWN. CLEARLY SOB AT REST AND USING ACCESSORY MUSCLES TO BREATH. WEARS O2 AT 3 LPM VIA NC DURING THE DAY AND BIPAP AT NIGHT. PULSE DECREASED TO HIGH 30-40'S THROUGHOUT THE NIGHT WHILE ON BIPAP. CALLED AND INFORMED DR. HUYNH AND HE RECOMMENDED TO CONTINUE TO MONITOR. PT APPEARS VERY COMFORTABLE AND STATES IT IS COMMON FOR HIS PULSE TO DECREASE WHILE SLEEPING. WILL CONTINUE TO MONITOR.
--- NOTE | 2025-06-20 07:06 | NUR ---
PT REFUSED Q2 TURNS
[2025-06-20 07:25] VITALS: BP 107/74
[2025-06-20 14:23] LABS: Hematocrit 30.1 % (37.0-53.0); Hemoglobin 8.7 g/dL (13.5-17.5); Mean Corpuscular HGB Conc 28.9 g/dL (31.5-36.5); Mean Corpuscular Volume 98 fL (80-100); NRBC ABSOLUTE 0.00 K/mm3 (0.00-0.02); NRBC Auto 0.0 /100 WBC (0.0-0.2); Platelet Count 194 K/mm3 (150-400); RDW Coefficient Variation 16.8 % (11.7-14.2); RDW Standard Deviation 60.4 fL (35.1-46.3)
[2025-06-20 14:54] LABS: Albumin, Blood 2.6 g/dL (3.4-5.0); Anion Gap 1 mmol/L (3-11); Blood Urea Nitrogen 24 mg/dL (8-24); CO2, Blood 44 mmol/L (21-32); Calcium, Blood 8.3 mg/dL (8.5-10.1); Chloride, Blood 97 mmol/L (98-108); Creatinine, Blood 0.60 mg/dL (0.60-1.20); Glucose, Blood 130 mg/dL (70-99); Magnesium, Blood 2.0 mg/dL (1.6-2.4); Phosphorus, Blood 3.3 mg/dL (2.5-4.9); Potassium, Blood 4.1 mmol/L (3.5-5.5); Sodium, Blood 138 mmol/L (136-145); Vancomycin, Trough 11.5 ug/mL (5.0-10.0)
--- NOTE | 2025-06-20 17:42 | NUR ---
A&OX4, COOPERATIVE [facility] CARE. REFUSED Q2 TURNS A FEW TIMES TODAY. DENIES ANY SP/PRESSURE, HEADACHE, OR DIZZINESS. SOB AT TIMES. NO COUGH NOTED. CURRENTLY ON 3L O2 VIA NC (BASELINE). CHRONIC PAIN REPORTED TO LOWER BACK AND TREATED WITH APAP.NO ACUTE EVENTS THIS SHIFT. PENDING BLOOD CULTURES. RECEIVING VANCO Q6. CURRENTLY LAYING IN BED. BED IN THE LOWEST POSITION. CALL LIGHT WITHIN REACH.
[2025-06-20 20:10] VITALS: BP 109/74
--- NOTE | 2025-06-21 03:51 | NUR ---
SHIFT SUMMARY A&OX 4. ABLE TO MAKE ALL NEEDS KNOWN. USING URINAL INDEPENDENTLY. TOOK PILLS WHOLE WITH WATER WITHOUT ISSUE. WEARING BIPAP WHILE SLEEPING AND TOLERATING WELL. PULSE REMAINING BETWEEN 60-70'S AND O2 SATS REMAINING IN MID-HIGH 90'S. EDUCATED ON IMPORTANCE OF ALTERNATING POSITIONS TO REMOVE PRESSURE. PT V/U. PT WAS ABLE TO ROLL ONTO LEFT SIDE ON HIS OWN AND REPOSITION NEEDED. CURRENTLY PT IS SLEEPING IN HIS BED AT LOWEST POSITION WITH HOB ELEVATED, RAILS X2 AND CALL LIGHT WITHIN REACH. PLAN IS FOR PT D/C TO SNF OR HOME FOR OUTPT INFUSIONS.
[2025-06-21 04:53] VITALS: BP 97/77
[2025-06-21 05:49] LABS: Hematocrit 28.2 % (37.0-53.0); Hemoglobin 8.3 g/dL (13.5-17.5); Mean Corpuscular HGB Conc 29.4 g/dL (31.5-36.5); Mean Corpuscular Volume 99 fL (80-100); NRBC ABSOLUTE 0.00 K/mm3 (0.00-0.02); NRBC Auto 0.0 /100 WBC (0.0-0.2); Platelet Count 181 K/mm3 (150-400); RDW Coefficient Variation 16.7 % (11.7-14.2); RDW Standard Deviation 60.8 fL (35.1-46.3)
[2025-06-21 06:10] LABS: Anion Gap 3.0 mmol/L (3-11); Blood Urea Nitrogen 18.0 mg/dL (8-24); CO2, Blood 42.0 mmol/L (21-32); Calcium, Blood 8.3 mg/dL (8.5-10.1); Chloride, Blood 97.0 mmol/L (98-108); Creatinine, Blood 0.54 mg/dL (0.60-1.20); Glucose, Blood 122.0 mg/dL (70-99); Potassium, Blood 3.9 mmol/L (3.5-5.5); Sodium, Blood 138.0 mmol/L (136-145)
[2025-06-21 08:08] VITALS: BP 118/66
[2025-06-21] MEDS ORDERED: Ampicillin Sod 2,000 MG in NS 100 ML IV SCH (13:00)
[2025-06-21] MEDS ORDERED: CefTRIAXone Sodium 1,000 MG in NS 100 ML IV SCH (14:00)
[2025-06-21 15:38] VITALS: BP 129/73
--- NOTE | 2025-06-21 18:32 | NUR ---
SHIFT SUMMARY NO ACUTE CHANGES THIS SHIFT, PT REPORTS "FEELING TIRED" TODAY, MEDICATED X1 W/TYLENOL FOR C/O LOW BACK PAIN, PT UP TO BSC & CHAIR THIS SHIFT W/1P ASSIST, FWW & GB, REPOSITION PT ALLOWS (PT ABLE TO TURN SELF), BEDRESTING AT THIS TIME, CALL LIGHT IN REACH, WILL CONT TO MONITOR UNTIL REPORT GIVEN TO ONCOMING NURSE.
[2025-06-21 21:04] VITALS: BP 98/79
[2025-06-22 03:42] VITALS: BP 122/75
--- NOTE | 2025-06-22 05:04 | NUR ---
SHIFT SUMMARY A&OX4. ABLE TO MAKE NEEDS KNOWN. RECEIVED BREATHING TREATMENTS WITH RT. REMAINS ON 3 LPM O2 VIA NC DURING THE DAY AND BIPAP AT NIGHT. USES URINAL INDEPENDENTLY. TOLERATING ABX INFUSIONS. CURRENTLY SLEEPING IN BED AT LOWEST POSITION WITH CALL LIGHT WITHIN REACH.
[2025-06-22 06:59] VITALS: BP 100/68
[2025-06-22 17:15] VITALS: BP 119/80
[2025-06-23 04:39] VITALS: BP 110/72
[2025-06-23 05:01] LABS: Hematocrit 30.1 % (37.0-53.0); Hemoglobin 8.5 g/dL (13.5-17.5); Mean Corpuscular HGB Conc 28.2 g/dL (31.5-36.5); Mean Corpuscular Volume 101 fL (80-100); NRBC ABSOLUTE 0.00 K/mm3 (0.00-0.02); NRBC Auto 0.0 /100 WBC (0.0-0.2); Platelet Count 182 K/mm3 (150-400); RDW Coefficient Variation 16.9 % (11.7-14.2); RDW Standard Deviation 60.9 fL (35.1-46.3)
[2025-06-23 05:36] LABS: Anion Gap 1.0 mmol/L (3-11); Blood Urea Nitrogen 23.0 mg/dL (8-24); CO2, Blood 44.0 mmol/L (21-32); Calcium, Blood 8.6 mg/dL (8.5-10.1); Chloride, Blood 99.0 mmol/L (98-108); Creatinine, Blood 0.58 mg/dL (0.60-1.20); Glucose, Blood 129.0 mg/dL (70-99); Potassium, Blood 4.3 mmol/L (3.5-5.5); Sodium, Blood 140.0 mmol/L (136-145)
--- NOTE | 2025-06-23 06:59 | NUR ---
SHIFT SUMMARY AT START OF SHIFT, PT AT BEDSIDE. SHE HELPED HIM GET HIS BIPAP ON, THEN SHE WENT HOME. PT SLEPT WELL THROUGH SHIFT, WAKING FOR MED PASSES. HE HAS BEEN PLEASANT AND COOPERATIVE WITH HIS CARE.
[2025-06-23 07:28] VITALS: BP 127/73
[2025-06-23 21:42] VITALS: BP 99/65
[2025-06-24 05:12] VITALS: BP 118/79
--- NOTE | 2025-06-24 07:32 | NUR ---
END OF SHIFT REPORT POSITIVE BLOOD CULTURES CALLED FROM CX DRAWN 06/23 BY LAB. AWARE AND PT HAS BLOOD CX ORDERED FOR TODAY TIMES 2. ABX REMAIN UNCHANGED W AMPICILLIN AND ROCEPHIN PER DEC. PT WORE 3.5 LITERS NC WHILE AWAKE AND PT HOME CPAP FOR SLEEP. PT DENIED PAIN. DISCUSSED W DIRECTOR OF MATERIALS MANAGEMENT PT HAS HAD NO TELE STRIP SINCE 06/18. THIS AM BEFORE SHIFT CHANGE, FOUND ON TRANSFER ORDER MED W TELE. DISCUSSED W DAY RN TO GET CLARIFICATION. AT 0630, PT STATES HE FEELS HE CANT VOID URINE. PT BLADDER SCANNED AND HAD 749. STRAIGHT CATHED PT AND 525 OUT. PT STATES RELIEF.
[2025-06-24 08:03] VITALS: BP 122/67
[2025-06-24 12:27] VITALS: BP 122/66
[2025-06-24 16:39] VITALS: BP 125/66
[2025-06-24 20:06] VITALS: BP 126/75
[2025-06-25 00:01] VITALS: BP 115/66
[2025-06-25 03:50] VITALS: BP 110/66
--- NOTE | 2025-06-25 04:43 | NUR ---
WOUND PICTURE TAKEN AT RIGHT TROCHANTER. NOTED: HEALING STAGE III WOUND WITH WHITE SLOUGH BASE. 2CM X 1.5 CM WOUND EDGES WELL APPROXIMATED. WOUND CLEANSED WITH WOUND CLEANSER SPRAY AND PAT DRIED WITH GAUZE. MEPILEX DRESSING APPLIED. SEE WOUND PICTURE FOR DETAILS. WHEN INQUIRING ABOUT WOUND PT BELIEVES THIS WOUND WAS PRESENT FROM HOME. WOUND ORDERS RECEIVED.
--- NOTE | 2025-06-25 06:20 | NUR ---
BRUSHER HAND SUMMARY PT A&OX4, VSS. PT HAS BEEN ASLEEP ON AND OFF THROUGHOUT THE NIGHT. CHEST RISE/RESPIRATIONS NOTED. USES CPAP AT NIGHT W/ 3L BLED IN AND 3L NC WHILE AWAKE. PT STATES THIS IS HIS BASELINE. PT REMAINS ON TELE. SR AT 73. RIGHT TROCHANTER WOUND CLEANSED AND DRESSED W/ MEPILEX. CHARGE NURSE CONSULTED. SEE NOTE FOR DETAILS. R TROCHANTER DRESSING AND RFA DRESSING REMAINS CDI. EARLY THIS MORNING, PT C/O INABILITY TO VOID. BLADDER SCAN PERFORMED PER ORDER, SHOWING 528 ML. STRAIGHT CATH SUBSEQUENTLY PERFORMED W/ STERILE TECHNIQUE AND PER ORDERS. 320 ML OF CLEAR, YELLOW URINE OUT. PT VOICED SIGNIFICANT IMPROVEMENT IN CONDITION AND COMFORT. BED RAILS UP X 2, BED IN LOWEST POSITION, BED WHEELS LOCKED, PERSONAL BELONGINGS AND CALL LIGHT WITHIN REACH FOR SAFETY.
[2025-06-25 06:50] LABS: Hematocrit 30.8 % (37.0-53.0); Hemoglobin 9.0 g/dL (13.5-17.5); Mean Corpuscular HGB Conc 29.2 g/dL (31.5-36.5); Mean Corpuscular Volume 100 fL (80-100); NRBC ABSOLUTE 0.00 K/mm3 (0.00-0.02); NRBC Auto 0.0 /100 WBC (0.0-0.2); Platelet Count 169 K/mm3 (150-400); RDW Coefficient Variation 18.0 % (11.7-14.2); RDW Standard Deviation 63.9 fL (35.1-46.3)
[2025-06-25 07:39] LABS: Anion Gap 3.0 mmol/L (3-11); Blood Urea Nitrogen 26.0 mg/dL (8-24); CO2, Blood 42.0 mmol/L (21-32); Calcium, Blood 8.4 mg/dL (8.5-10.1); Chloride, Blood 101.0 mmol/L (98-108); Creatinine, Blood 0.53 mg/dL (0.60-1.20); Glucose, Blood 89.0 mg/dL (70-99); Potassium, Blood 3.8 mmol/L (3.5-5.5); Sodium, Blood 142.0 mmol/L (136-145)
[2025-06-25 08:14] VITALS: BP 120/72
[2025-06-25 14:43] VITALS: BP 118/75
--- NOTE | 2025-06-25 18:48 | NUR ---
END OF SHIFT PT CONT WITH IV ANTIBIOTICS. NO ADVERSE REACTIONS NOTED. PT ENCOURAGED TO GET OUT OF BED, BUT CHOOSES NOT TO. PT CONTINUES TO BE ON 2 LITERS OF OXYGEN, SOB WITH NO TO MIN ACTIVITY. HAS BEEN AT BEDSIDE MOST OF THE DAY. PRN FOR PAIN GIVEN X1 FOR BACK PAIN. PLAN IS TO DISCHARGE TO [facility] WHEN BED IS AVAILABLE.
[2025-06-25 19:39] VITALS: BP 123/71
--- NOTE | 2025-06-25 23:00 | NUR ---
Assumed Care Received report from Sophie Johnson RN. Patient, here for COPD exac, is awake sitting HOB 30 in bed with CPAP on. Partial linen changed d/t blood leakage from IV per Sophie. Patient AOX3. Asking for bath in the morning when is here so she can assist him. Tele: NSR. Currently awaiting bed at [place] for mitral valve repair. Used urinal independently, some spillage noted. Bed in lowest position. Call light in reach.
[2025-06-25 23:51] VITALS: BP 110/58
[2025-06-26] MEDS ORDERED: BREZTRI AEROS10.7 GM INH (00:17)
[2025-06-26] MEDS ORDERED: IPRATROPIUM BRO30 ML (00:26)
[2025-06-26] MEDS ORDERED: TIZA4 PO (00:27)
[2025-06-26] MEDS ORDERED: TRELEGY ELLIPT1 EACH INH (00:29)
[2025-06-26 03:57] VITALS: BP 109/72
--- NOTE | 2025-06-26 05:42 | NUR ---
Shift Summary AOx4. No acute changes since assumed care at around 2300. Voiding well. Awaiting bed availability at [place].
[2025-06-26 07:59] VITALS: BP 128/63
[2025-06-26 08:51] LABS: BASOPHILS ABSOLUTE AUTO 0.00 K/mm3 (0.00-0.23); BASOPHILS PERCENT AUTO 0 % (0-2); EOSINOPHILS ABSOLUTE AUTO 0.00 K/mm3 (0.00-0.68); EOSINOPHILS PERCENT AUTO 0 % (0-6); Hematocrit 31.2 % (37.0-53.0); Hemoglobin 9.2 g/dL (13.5-17.5); IMMATURE GRAN ABSOLUTE AUTO 0.05 K/mm3 (0.00-0.10); IMMATURE GRAN PERCENT AUTO 1 % (0-1); LYMPHOCYTES ABSOLUTE AUTO 0.10 K/mm3 (0.84-5.20); LYMPHOCYTES PERCENT AUTO 1 % (21-46); MONOCYTES ABSOLUTE AUTO 0.23 K/mm3 (0.16-1.47); MONOCYTES PERCENT AUTO 3 % (4-13); Mean Corpuscular HGB Conc 29.5 g/dL (31.5-36.5); Mean Corpuscular Volume 101 fL (80-100); NEUTROPHILS ABSOLUTE AUTO 6.56 K/mm3 (1.96-9.15); NEUTROPHILS PERCENT AUTO 95 % (41-73); NRBC ABSOLUTE 0.00 K/mm3 (0.00-0.02); NRBC Auto 0.0 /100 WBC (0.0-0.2); Platelet Count 157 K/mm3 (150-400); RDW Coefficient Variation 18.2 % (11.7-14.2); RDW Standard Deviation 66.0 fL (35.1-46.3)
[2025-06-26 09:06] LABS: Prothrombin Time Results 17.7 Sec (9.7-11.5)
[2025-06-26] MEDS ORDERED: Heparin Sodium,Porcine/0.5 NS 500 ML IV SCH (09:35)
[2025-06-26 15:07] VITALS: BP 128/63
[2025-06-26 15:50] VITALS: BP 128/63
[2025-06-26 16:04] VITALS: BP 129/74
[2025-06-26 16:17] VITALS: BP 128/63
--- NOTE | 2025-06-26 18:42 | NUR ---
TRANSFER/DISCHARGE SUMMARY PT DISCHARGED IN CARE OF [facility] VIA GURNEY TO [facility]. PT TO CONSULT WITH DR. LORENZO FOR POSSIBLE MITRAL VALVE CLIP FOR SEVERE MITRAL VALVE INSUFFIENCY. TRANSITIONED FROM USE OF BEDSIDE URINAL TO MALE PUREWICK FOR TRANSPORT PER PT REQUEST. HEPARIN INFUSING IN RFA IV AT 15 U/KG/HR (18.3 ML/HR, WT 61 KG). PT PAIN WELL-MANAGED. PT REMAINS ON 3L NC FOR TRANSPORT VIA GURNEY. PACKET GIVEN TO [facility]ER. REPORT CALLED TO PALMA REYES AT [phone]. LAST APTT 40.3 RESULTED AT 1643. AND [facility] HAVE PT BELONGINGS INCLUDING PT CPAP FOR USE.
== END 2025-06-26 17:25 | disposition short-term general hospital (02) | DRG 871 ==
LOC: ER 16:36 → ICUE 20:39 → MEDS 20:39 → ICUE 21:46 → SURS 06-17 20:55 → MEDS 06-19 03:24
PROVIDERS: Emergency Medicine; Internal Medicine; Internal Medicine Critical Care Medicine; Nurse Practitioner Acute Care; Student in an Organized Health Care Education/Training Program; ADMIT Internal Medicine
PROC: 3E03329 Introduction of Other Anti-infective into Peripheral Vein, Percutaneous Approach (ICD-10-PCS; 2025-06-16)
PROC: 5A09357 Assistance with Respiratory Ventilation, Less than 24 Consecutive Hours, Continuous Positive Airway Pressure (ICD-10-PCS; principal; 2025-06-18)
DX: A41.9 Sepsis, unspecified organism (principal); J18.9 Pneumonia, unspecified organism; J96.21 Acute and chronic respiratory failure with hypoxia; J96.22 Acute and chronic respiratory failure with hypercapnia; J44.0 Chronic obstructive pulmonary disease with (acute) lower respiratory infection; J44.1 Chronic obstructive pulmonary disease with (acute) exacerbation; I50.30 Unspecified diastolic (congestive) heart failure; I11.0 Hypertensive heart disease with heart failure; D64.9 Anemia, unspecified; I48.0 Paroxysmal atrial fibrillation; I34.0 Nonrheumatic mitral (valve) insufficiency; J43.9 Emphysema, unspecified; R54 Age-related physical debility; G47.33 Obstructive sleep apnea (adult) (pediatric); Z79.01 Long term (current) use of anticoagulants; Z79.52 Long term (current) use of systemic steroids; Z79.899 Other long term (current) drug therapy; Z88.1 Allergy status to other antibiotic agents; Z88.8 Allergy status to other drugs, medicaments and biological substances; Z90.89 Acquired absence of other organs; Z98.890 Other specified postprocedural states; Z87.891 Personal history of nicotine dependence
CPT/HCPCS: 0202U; 36415; 71045; 71260; 80048; 80053; 80069; 80202; 81003; 82607; 82728; 82746; 82803; 83540; 83550; 83605; 83735; 83880; 84145; 84484; 85025; 85027; 85379; 85610; 85730; 87040; 87070; 87077; 87147; 87186; 87205; 93005; 93010; 93306; 94640; 94660; 94664; 94760; 94762; 96365-59; 96375-59; 97110; 97161; 97165; 97530; 97535; 99285-25; A9270; J0290; J0456; J0696; J1644; J1650; J2470; J2919; J3373; J7030; J7050; J7512; Q9967

== ENCOUNTER → 2025-07-12 | Outpatient (CLI) | payer MEDICARE, BC ==
[~2025-07-12] MED LIST changes: +BREZTRI AEROS10.7 GM INH; +IPRATROPIUM BRO30 ML; +PRED5 PO; +TIZA4 PO; +TORS10 PO; +TRELEGY ELLIPT1 EACH INH
[2025-07-12 12:42] LABS: BASOPHILS ABSOLUTE AUTO 0.01 K/mm3 (0.00-0.23); BASOPHILS PERCENT AUTO 0 % (0-2); EOSINOPHILS ABSOLUTE AUTO 0.06 K/mm3 (0.00-0.68); EOSINOPHILS PERCENT AUTO 1 % (0-6); Hematocrit 27.7 % (37.0-53.0); Hemoglobin 8.2 g/dL (13.5-17.5); IMMATURE GRAN ABSOLUTE AUTO 0.03 K/mm3 (0.00-0.10); IMMATURE GRAN PERCENT AUTO 0 % (0-1); LYMPHOCYTES ABSOLUTE AUTO 0.17 K/mm3 (0.84-5.20); LYMPHOCYTES PERCENT AUTO 2 % (21-46); MONOCYTES ABSOLUTE AUTO 0.58 K/mm3 (0.16-1.47); MONOCYTES PERCENT AUTO 7 % (4-13); Mean Corpuscular HGB Conc 29.6 g/dL (31.5-36.5); Mean Corpuscular Volume 104 fL (80-100); NEUTROPHILS ABSOLUTE AUTO 7.26 K/mm3 (1.96-9.15); NEUTROPHILS PERCENT AUTO 90 % (41-73); NRBC ABSOLUTE 0.00 K/mm3 (0.00-0.02); NRBC Auto 0.0 /100 WBC (0.0-0.2); Platelet Count 146 K/mm3 (150-400); RDW Coefficient Variation 19.0 % (11.7-14.2); RDW Standard Deviation 72.8 fL (35.1-46.3)
[2025-07-12 13:02] LABS: Alanine Aminotransfer (ALT/SGP 31.0 U/L (12-78); Albumin, Blood 2.7 g/dL (3.4-5.0); Albumin/Globulin Ratio 0.8 (0.8-1.8); Anion Gap 5.0 mmol/L (3-11); Aspartate Aminotrans (AST/SGOT 22.0 U/L (12-37); Bilirubin, Total 0.4 mg/dL (0.1-1.0); Blood Urea Nitrogen 38.0 mg/dL (8-24); CO2, Blood 42.0 mmol/L (21-32); Calcium, Blood 8.8 mg/dL (8.5-10.1); Chloride, Blood 94.0 mmol/L (98-108); Creatinine, Blood 0.78 mg/dL (0.60-1.20); Globulin, Blood 3.4 g/dL (2.2-4.0); Glucose, Blood 111.0 mg/dL (70-99); Potassium, Blood 3.2 mmol/L (3.5-5.5); Sodium, Blood 138.0 mmol/L (136-145); Total Protein, Blood 6.1 g/dL (6.4-8.2)
== END ==
LOC: LAB SHORT 12:06 → LAB 12:06
PROVIDERS: Internal Medicine Infectious Disease
DX: I50.43 Acute on chronic combined systolic (congestive) and diastolic (congestive) heart failure (principal); B95.2 Enterococcus as the cause of diseases classified elsewhere
CPT/HCPCS: 80053; 85025

== ENCOUNTER → 2025-07-19 | Outpatient (CLI) | payer MEDICARE, BC ==
[2025-07-19 10:58] LABS: BASOPHILS ABSOLUTE AUTO 0.02 K/mm3 (0.00-0.23); BASOPHILS PERCENT AUTO 0 % (0-2); EOSINOPHILS ABSOLUTE AUTO 0.12 K/mm3 (0.00-0.68); EOSINOPHILS PERCENT AUTO 2 % (0-6); Hematocrit 30.7 % (37.0-53.0); Hemoglobin 8.9 g/dL (13.5-17.5); IMMATURE GRAN ABSOLUTE AUTO 0.01 K/mm3 (0.00-0.10); IMMATURE GRAN PERCENT AUTO 0 % (0-1); LYMPHOCYTES ABSOLUTE AUTO 0.29 K/mm3 (0.84-5.20); LYMPHOCYTES PERCENT AUTO 5 % (21-46); MONOCYTES ABSOLUTE AUTO 0.55 K/mm3 (0.16-1.47); MONOCYTES PERCENT AUTO 10 % (4-13); Mean Corpuscular HGB Conc 29.0 g/dL (31.5-36.5); Mean Corpuscular Volume 103 fL (80-100); NEUTROPHILS ABSOLUTE AUTO 4.62 K/mm3 (1.96-9.15); NEUTROPHILS PERCENT AUTO 82 % (41-73); NRBC ABSOLUTE 0.00 K/mm3 (0.00-0.02); NRBC Auto 0.0 /100 WBC (0.0-0.2); Platelet Count 193 K/mm3 (150-400); RDW Coefficient Variation 17.3 % (11.7-14.2); RDW Standard Deviation 66.6 fL (35.1-46.3)
[2025-07-19 13:56] LABS: Alanine Aminotransfer (ALT/SGP 30.0 U/L (12-78); Albumin, Blood 2.6 g/dL (3.4-5.0); Albumin/Globulin Ratio 0.8 (0.8-1.8); Anion Gap 6.0 mmol/L (3-11); Aspartate Aminotrans (AST/SGOT 24.0 U/L (12-37); Bilirubin, Total 0.3 mg/dL (0.1-1.0); Blood Urea Nitrogen 14.0 mg/dL (8-24); CO2, Blood 37.0 mmol/L (21-32); Calcium, Blood 8.9 mg/dL (8.5-10.1); Chloride, Blood 100.0 mmol/L (98-108); Creatinine, Blood 0.79 mg/dL (0.60-1.20); Globulin, Blood 3.3 g/dL (2.2-4.0); Glucose, Blood 111.0 mg/dL (70-99); Potassium, Blood 3.9 mmol/L (3.5-5.5); Sodium, Blood 139.0 mmol/L (136-145); Total Protein, Blood 5.9 g/dL (6.4-8.2)
== END ==
LOC: LAB 10:25 → LAB SHORT 10:25
PROVIDERS: Internal Medicine Infectious Disease
DX: I50.43 Acute on chronic combined systolic (congestive) and diastolic (congestive) heart failure (principal); I34.1 Nonrheumatic mitral (valve) prolapse; B95.2 Enterococcus as the cause of diseases classified elsewhere
CPT/HCPCS: 80053; 85025

== ENCOUNTER → 2025-07-26 | Outpatient (CLI) | payer MEDICARE, BC ==
[2025-07-26 14:43] LABS: BASOPHILS ABSOLUTE AUTO 0.02 K/mm3 (0.00-0.23); BASOPHILS PERCENT AUTO 0 % (0-2); EOSINOPHILS ABSOLUTE AUTO 0.05 K/mm3 (0.00-0.68); EOSINOPHILS PERCENT AUTO 1 % (0-6); Hematocrit 32.7 % (37.0-53.0); Hemoglobin 9.6 g/dL (13.5-17.5); IMMATURE GRAN ABSOLUTE AUTO 0.02 K/mm3 (0.00-0.10); IMMATURE GRAN PERCENT AUTO 0 % (0-1); LYMPHOCYTES ABSOLUTE AUTO 0.26 K/mm3 (0.84-5.20); LYMPHOCYTES PERCENT AUTO 4 % (21-46); MONOCYTES ABSOLUTE AUTO 0.66 K/mm3 (0.16-1.47); MONOCYTES PERCENT AUTO 9 % (4-13); Mean Corpuscular HGB Conc 29.4 g/dL (31.5-36.5); Mean Corpuscular Volume 102 fL (80-100); NEUTROPHILS ABSOLUTE AUTO 5.98 K/mm3 (1.96-9.15); NEUTROPHILS PERCENT AUTO 86 % (41-73); NRBC ABSOLUTE 0.00 K/mm3 (0.00-0.02); NRBC Auto 0.0 /100 WBC (0.0-0.2); Platelet Count 136 K/mm3 (150-400); RDW Coefficient Variation 16.3 % (11.7-14.2); RDW Standard Deviation 62.3 fL (35.1-46.3)
[2025-07-26 16:43] LABS: Alanine Aminotransfer (ALT/SGP 23.0 U/L (12-78); Albumin, Blood 2.7 g/dL (3.4-5.0); Albumin/Globulin Ratio 0.8 (0.8-1.8); Anion Gap 6.0 mmol/L (3-11); Aspartate Aminotrans (AST/SGOT 21.0 U/L (12-37); Bilirubin, Total 0.3 mg/dL (0.1-1.0); Blood Urea Nitrogen 24.0 mg/dL (8-24); CO2, Blood 39.0 mmol/L (21-32); Calcium, Blood 8.9 mg/dL (8.5-10.1); Chloride, Blood 102.0 mmol/L (98-108); Creatinine, Blood 0.84 mg/dL (0.60-1.20); Globulin, Blood 3.6 g/dL (2.2-4.0); Glucose, Blood 123.0 mg/dL (70-99); Potassium, Blood 3.8 mmol/L (3.5-5.5); Sodium, Blood 143.0 mmol/L (136-145); Total Protein, Blood 6.3 g/dL (6.4-8.2)
== END | disposition home or self-care (01) ==
LOC: LAB 12:00 → LAB SHORT 12:00
PROVIDERS: Internal Medicine Infectious Disease
DX: I50.43 Acute on chronic combined systolic (congestive) and diastolic (congestive) heart failure (principal); I34.0 Nonrheumatic mitral (valve) insufficiency; B95.2 Enterococcus as the cause of diseases classified elsewhere
CPT/HCPCS: 80053; 85025

== ENCOUNTER → 2025-08-02 | Outpatient (CLI) | payer MEDICARE, BC ==
[2025-08-02 12:03] LABS: BASOPHILS ABSOLUTE AUTO 0.04 K/mm3 (0.00-0.23); BASOPHILS PERCENT AUTO 1 % (0-2); EOSINOPHILS ABSOLUTE AUTO 0.05 K/mm3 (0.00-0.68); EOSINOPHILS PERCENT AUTO 1 % (0-6); Hematocrit 32.8 % (37.0-53.0); Hemoglobin 9.8 g/dL (13.5-17.5); IMMATURE GRAN ABSOLUTE AUTO 0.01 K/mm3 (0.00-0.10); IMMATURE GRAN PERCENT AUTO 0 % (0-1); LYMPHOCYTES ABSOLUTE AUTO 0.43 K/mm3 (0.84-5.20); LYMPHOCYTES PERCENT AUTO 9 % (21-46); MONOCYTES ABSOLUTE AUTO 0.51 K/mm3 (0.16-1.47); MONOCYTES PERCENT AUTO 10 % (4-13); Mean Corpuscular HGB Conc 29.9 g/dL (31.5-36.5); Mean Corpuscular Volume 102 fL (80-100); NEUTROPHILS ABSOLUTE AUTO 3.89 K/mm3 (1.96-9.15); NEUTROPHILS PERCENT AUTO 79 % (41-73); NRBC ABSOLUTE 0.00 K/mm3 (0.00-0.02); NRBC Auto 0.0 /100 WBC (0.0-0.2); Platelet Count 137 K/mm3 (150-400); RDW Coefficient Variation 15.8 % (11.7-14.2); RDW Standard Deviation 59.7 fL (35.1-46.3)
[2025-08-02 16:20] LABS: Alanine Aminotransfer (ALT/SGP 23.0 U/L (12-78); Albumin, Blood 2.8 g/dL (3.4-5.0); Albumin/Globulin Ratio 0.8 (0.8-1.8); Anion Gap 2.0 mmol/L (3-11); Aspartate Aminotrans (AST/SGOT 23.0 U/L (12-37); Bilirubin, Total 0.3 mg/dL (0.1-1.0); Blood Urea Nitrogen 28.0 mg/dL (8-24); CO2, Blood 42.0 mmol/L (21-32); Calcium, Blood 9.1 mg/dL (8.5-10.1); Chloride, Blood 99.0 mmol/L (98-108); Creatinine, Blood 0.76 mg/dL (0.60-1.20); Globulin, Blood 3.6 g/dL (2.2-4.0); Glucose, Blood 113.0 mg/dL (70-99); Potassium, Blood 3.4 mmol/L (3.5-5.5); Sodium, Blood 140.0 mmol/L (136-145); Total Protein, Blood 6.4 g/dL (6.4-8.2)
== END ==
LOC: LAB 10:10 → LAB SHORT 10:10
PROVIDERS: Internal Medicine Infectious Disease
DX: I50.43 Acute on chronic combined systolic (congestive) and diastolic (congestive) heart failure (principal); B95.2 Enterococcus as the cause of diseases classified elsewhere
CPT/HCPCS: 80053; 85025

== ENCOUNTER → 2025-08-09 | Outpatient (CLI) | payer MEDICARE, BC ==
[2025-08-09 14:24] LABS: BASOPHILS ABSOLUTE AUTO 0.06 K/mm3 (0.00-0.23); BASOPHILS PERCENT AUTO 1 % (0-2); EOSINOPHILS ABSOLUTE AUTO 0.08 K/mm3 (0.00-0.68); EOSINOPHILS PERCENT AUTO 1 % (0-6); Hematocrit 35.3 % (37.0-53.0); Hemoglobin 10.5 g/dL (13.5-17.5); IMMATURE GRAN ABSOLUTE AUTO 0.02 K/mm3 (0.00-0.10); IMMATURE GRAN PERCENT AUTO 0 % (0-1); LYMPHOCYTES ABSOLUTE AUTO 0.28 K/mm3 (0.84-5.20); LYMPHOCYTES PERCENT AUTO 3 % (21-46); MONOCYTES ABSOLUTE AUTO 0.74 K/mm3 (0.16-1.47); MONOCYTES PERCENT AUTO 8 % (4-13); Mean Corpuscular HGB Conc 29.7 g/dL (31.5-36.5); Mean Corpuscular Volume 101 fL (80-100); NEUTROPHILS ABSOLUTE AUTO 7.58 K/mm3 (1.96-9.15); NEUTROPHILS PERCENT AUTO 87 % (41-73); NRBC ABSOLUTE 0.00 K/mm3 (0.00-0.02); NRBC Auto 0.0 /100 WBC (0.0-0.2); Platelet Count 231 K/mm3 (150-400); RDW Coefficient Variation 15.0 % (11.7-14.2); RDW Standard Deviation 55.5 fL (35.1-46.3)
[2025-08-09 15:23] LABS: Alanine Aminotransfer (ALT/SGP 16.0 U/L (12-78); Albumin, Blood 3.0 g/dL (3.4-5.0); Albumin/Globulin Ratio 0.8 (0.8-1.8); Anion Gap 7.0 mmol/L (3-11); Aspartate Aminotrans (AST/SGOT 20.0 U/L (12-37); Bilirubin, Total 0.3 mg/dL (0.1-1.0); Blood Urea Nitrogen 21.0 mg/dL (8-24); CO2, Blood 38.0 mmol/L (21-32); Calcium, Blood 9.6 mg/dL (8.5-10.1); Chloride, Blood 96.0 mmol/L (98-108); Creatinine, Blood 0.79 mg/dL (0.60-1.20); Globulin, Blood 3.6 g/dL (2.2-4.0); Glucose, Blood 103.0 mg/dL (70-99); Potassium, Blood 3.6 mmol/L (3.5-5.5); Sodium, Blood 137.0 mmol/L (136-145); Total Protein, Blood 6.6 g/dL (6.4-8.2)
== END ==
LOC: LAB 12:05 → LAB SHORT 12:05
PROVIDERS: Internal Medicine Infectious Disease
DX: I50.43 Acute on chronic combined systolic (congestive) and diastolic (congestive) heart failure (principal); B95.2 Enterococcus as the cause of diseases classified elsewhere
CPT/HCPCS: 80053; 85025

== ENCOUNTER → 2025-09-09 | Outpatient (CLI) | payer MEDICARE, BC | LOC: LAB 10:01 → LAB SHORT 10:01 | DX: J44.9 Chronic obstructive pulmonary disease, unspecified (principal) | CPT/HCPCS: 87070; 87205 ==